=== PATIENT | female | born 1935 | race Caucasian/White ===

== ENCOUNTER → 2019-05-12 15:01 | Outpatient (CLI) | payer MEDICARE, BC ==
[2011-01-16 22:09] VITALS: BMI 40.0
== END | disposition home or self-care (01) ==
LOC: D.CT 15:00
PROVIDERS: ATTEND Family Medicine
DX: R51 Headache (principal)

== ENCOUNTER 2021-01-29 12:23 | Inpatient (IN) | payer MEDICARE, BC ==
[~2021-01-29] VITALS: Ht 165.1 cm; Wt 70.8 kg
[2021-01-29 12:50] LABS: BASOPHILS 0.3 % (0-2); EOSINOPHILS 2.6 % (0-7); HEMATOCRIT 30.9 % (36.0-48.0); HEMOGLOBIN 9.7 g/dL (12-16); IMMATURE GRANULOCYTES 0.7 % (0-5); LYMPHOCYTE ABS# 0.63 10x3/uL (1.18-3.74); LYMPHOCYTES 4.7 % (15-50); MCH 28.7 pg (26.0-34.0); MCHC 31.4 g/dL (31.0-37.0); MCV 91.4 fL (80.0-100.0); MEAN PLATELET VOLUME 10.7 fL (7.4-10.4); MONOCYTES 6.3 % (2-11); NEUTROPHIL ABS# 11.33 10x3/uL (1.56-6.13); NEUTROPHILS 85.4 % (40-80); PLATELET COUNT 231 10x3/uL (130-400); RBC 3.38 10x6/uL (4.00-5.40); RDW 16.5 % (11.5-14.5); WBC 13.3 10x3/uL (4.8-10.8)
[2021-01-29 12:55] LABS: ANION GAP 7.6 mmol/L (8-16); CALCIUM 8.3 mg/dL (8.5-10.1); CARBON DIOXIDE 29.2 mmol/L (21.0-32.0); CREATININE - SERUM 1.4 mg/dL (0.6-1.3); POTASSIUM - SERUM 3.8 mmol/L (3.5-5.1)
[2021-01-29 13:01] LABS: ALBUMIN 2.6 g/dL (3.4-5.0); BILIRUBIN - TOTAL 0.64 mg/dL (0.2-1.3); PROTEIN - SERUM 6.4 g/dL (6.4-8.2)
--- NOTE | 2021-01-29 13:14 | NUR ---
BLANKETS GIVEN, DAUGHTER AT BEDSIDE, DENIES FURTHER NEEDS. NAD.
[2021-01-29 13:41] LABS: APTT 29.5 SECONDS (22.8-39.4); INR 1.25 (0.85-1.17); PROTIME 14.5 SECONDS (11.6-15.0)
[2021-01-29 14:35] LABS: BILIRUBIN NEGATIVE (NEGATIVE); KETONE NEGATIVE (NEGATIVE); NITRITE NEGATIVE (NEGATIVE); UROBILINOGEN NORMAL mg/dL (< 2)
[2021-01-29 16:30] VITALS: BP 112/68
--- NOTE | 2021-01-29 16:30 | NUR ---
PT RECEIVED TO ROOM 2210 VIA STRETCHER. DAUGHTER AT BEDSIDE. RESP SHALLOW. ASSISTED PT TRANSFER FROM STRETCHER TO BED WITH SLIDING BOARD. PT REPORTS PAIN AND DIFFICULTY MOVING DUE TO FX IN HIP AND PELVIS. PROVIDED INCONTINENT CARE TO PT. IV TO LEFT FOREARM WITH NS INFUSING, SITE WITHOUT REDNESS OR EDEMA. BRUISING NOTED TO BILAT UPPER EXTREMITIES. O2 @ 3L NC IN PLACE, PT VOICES TO WEARING O2 AT HOME. ORIENTED TO BED CONTROL, CL AND ROOM. INSTRUCTED PT TO CALL FOR STAFF ASSISTANCE BEFORE ATTEMPTING TO AMBULATE DUE TO FALL RISK. BED ALARM ON AT THIS TIME. CL WITHIN REACH.
[2021-01-29] MEDS ORDERED: BAYER CHEWABLE81 MG PO (16:44)
[2021-01-29] MEDS ORDERED: ZOLOFT50 MG PO (16:45)
[2021-01-29] MEDS ORDERED: ULTRAM50 MG PO (16:45)
[2021-01-29] MEDS ORDERED: OMEPRAZOLE20 M1 PO (16:45)
[2021-01-29] MEDS ORDERED: ENTOCORT EC3 MG PO (16:46)
[2021-01-29] MEDS ORDERED: VITAMIN D10000 UNIT PO (16:47)
[2021-01-29] MEDS ORDERED: VOLTAREN100 GM TOPICAL (16:48)
[2021-01-29] MEDS ORDERED: COZAAR25 MG PO (16:48)
[2021-01-29] MEDS ORDERED: MULTAQ400 MG PO (16:49)
[2021-01-29] MEDS ORDERED: ZYRTEC10 MG PO (16:49)
[2021-01-29] MEDS ORDERED: LOPERAMIDE HCL2 MG PO ×2 (16:50→16:51)
[2021-01-29] MEDS ORDERED: ASCORBIC ACID500 MG PO (16:51)
[2021-01-29] MEDS ORDERED: MULTI-DAY VITAM1 TAB PO (16:52)
[2021-01-29] MEDS ORDERED: PROBIOTIC BLEN1 EACH (16:56)
[2021-01-29 17:29] VITALS: BP 112/68
--- NOTE | 2021-01-29 19:27 | NUR ---
FAMILY BROUGHT IN FOOD AND PATIENT ATE ALL OF SUPPER. DENIES NEEDS. NO CHANGES NOTED.
--- NOTE | 2021-01-29 19:46 | NUR ---
PATIENT RESTING IN BED AND DENIES NEEDS AT THIS TIME. BED IN LOWEST POSITION AND CALL LIGHT IN REACH. ENCOURAGED PATIENT TO CALL WITH NEEDS.
--- NOTE | 2021-01-29 20:33 | NUR ---
ADMINISTERED MEDS PER ORDERS. PATIENT KRISTYN WELL. ENCOURAGED TO CALL WITH NEEDS.
[2021-01-29 20:37] VITALS: BP 140/90
[2021-01-30 04:44] LABS: BASOPHILS 0.5 % (0-2); EOSINOPHILS 3.1 % (0-7); HEMATOCRIT 30.8 % (36.0-48.0); HEMOGLOBIN 9.5 g/dL (12-16); IMMATURE GRANULOCYTES 0.5 % (0-5); LYMPHOCYTES 7.1 % (15-50); MCH 28.3 pg (26.0-34.0); MCHC 30.8 g/dL (31.0-37.0); MCV 91.7 fL (80.0-100.0); NEUTROPHIL ABS# 9.05 10x3/uL (1.56-6.13); NEUTROPHILS 80.8 % (40-80); PLATELET COUNT 186 10x3/uL (130-400); RBC 3.36 10x6/uL (4.00-5.40); RDW 16.6 % (11.5-14.5); WBC 11.2 10x3/uL (4.8-10.8)
[2021-01-30 04:56] VITALS: BP 153/31
[2021-01-30 04:59] LABS: ANION GAP 12.3 mmol/L (8-16); CALCIUM 8.3 mg/dL (8.5-10.1); CARBON DIOXIDE 27.2 mmol/L (21.0-32.0); CREATININE - SERUM 1.5 mg/dL (0.6-1.3)
[2021-01-30 05:00] LABS: POTASSIUM - SERUM 4.5 mmol/L (3.5-5.1)
--- NOTE | 2021-01-30 07:56 | NUR ---
AWAKE AND ALERT. ORIENTED X3. C/O SOME PAIN AT THIS TIME. WILL GIVE PRN. LUNGS ARE CLEAR BUT DIMINISHED THROUGHOUT, NO COUGH NOTED. SKIN IS INTACT WITHOUT REDNESS. IV TO LEFT AC IS PATENT WITHOUT REDNESS AT INSERTION SITE. DENIES NEEDS.
[2021-01-30 09:04] VITALS: BP 113/67
--- NOTE | 2021-01-30 10:00 | NUR ---
RESTING QUIETLY IN BED DAUGHTER AT BEDSIDE. DENIES NEEDS.
[2021-01-30 12:06] VITALS: BP 127/54
[2021-01-30 16:48] VITALS: BP 109/55
--- NOTE | 2021-01-30 18:35 | NUR ---
ATE MOST OF DINNER. FAMILY AT BEDSIDE. C/O WHAT MAY BE SPASMS TO LEFT GROIN AREA. WILL MONITOR. DENIES NEEDS. NO CHANGES NOTED.
--- NOTE | 2021-01-30 19:34 | NUR ---
PATIENT RESTING IN BED WITH NO S/S OF DISTRESS AND REQUESTED PAIN MED WHEN AVAILABE. PATIENT DENIES OTHER NEEDS AT THIS TIME. BED IN LOWEST POSITION AND CALL LIGHT IN REACH. ENCOURAGED PATIENT TO CALL WITH NEEDS.
[2021-01-30 20:35] VITALS: BP 132/45
--- NOTE | 2021-01-30 20:52 | NUR ---
ADMINISTERED MEDS PER ORDERS. PATIENT KRISTYN WELL. ENCOURAGED TO CALL WITH NEEDS.
[2021-01-31 05:11] VITALS: BP 121/40
[2021-01-31 06:23] LABS: BASOPHILS 0.2 % (0-2); EOSINOPHILS 0.3 % (0-7); HEMATOCRIT 28.4 % (36.0-48.0); HEMOGLOBIN 8.8 g/dL (12-16); IMMATURE GRANULOCYTES 0.5 % (0-5); LYMPHOCYTE ABS# 0.34 10x3/uL (1.18-3.74); LYMPHOCYTES 3.1 % (15-50); MCH 28.3 pg (26.0-34.0); MCV 91.3 fL (80.0-100.0); MEAN PLATELET VOLUME 10.6 fL (7.4-10.4); NEUTROPHIL ABS# 10.09 10x3/uL (1.56-6.13); NEUTROPHILS 91.9 % (40-80); PLATELET COUNT 174 10x3/uL (130-400); RBC 3.11 10x6/uL (4.00-5.40); RDW 16.6 % (11.5-14.5)
[2021-01-31 07:08] LABS: ANION GAP 12.8 mmol/L (8-16); CALCIUM 8.1 mg/dL (8.5-10.1); CARBON DIOXIDE 26.8 mmol/L (21.0-32.0); CREATININE - SERUM 1.6 mg/dL (0.6-1.3); POTASSIUM - SERUM 4.6 mmol/L (3.5-5.1)
[2021-01-31 09:22] VITALS: BP 135/106
[2021-01-31 12:26] VITALS: Ht 165.1 cm; Wt 70.8 kg
--- NOTE | 2021-01-31 13:22 | MORECARE ---
CASE MANAGEMENT DISCHARGE SUMMARY PATIENT: MIRNA CHAVEZ UNIT: [id number] ADM DATE: 01/29/21 AGE: 85 : 35 SEX: F ROOM/BED: D.2210 AUTHOR: VALERIO,DOC PHYSICIAN: REFERRING PHYSICIAN: TOD DELCID MD DATE OF SERVICE: 01/31/21 Case Management Discharge Planning Summary COMMENTS ENTERED DATE: 01/31/21 13:16 CT COMMENT TYPE: Discharge Planning REVIEWER: Martha Parr CM met with patient & her daughter to complete initial dc planning assessment. CM educated patient on the CM role and verbal consent given by patient to complete assessment. Patient was just discharged home from [facility] where she was at home for 6 hours and got tangled up in her O2 tubing , she really doesn't remember who or why. She was set up with [facility] when she was discharge from [facility]. Prior to her going to [facility], she was independent at home where she care for herself. At discharge patient plans to return to [facility] and feels this is a safe discharge. She wears home O2 all the time @ 2L. She gets her O2 from [employer] in [place]. She has portable O2 and a concentrator. She has a walker and a cane at home. I have sent the referral to [facility] and spoke with Glenis. ERNESTINA signed and placed in chart. IMM also signed and placed in chart. Patient denied known discharge needs at this time. CM will continue to follow and will assist as needed with dc plans/needs. DCP REVIEW SUMMARY ANTICIPATED D/C DATE: EXPECTED LOS : CASE STATUS: DCP Initiated INITIAL REVIEW: 01/29/2021 INITIAL REVIEWER: Martha Parr FINAL DISCHARGE DISPOSITION: : FINAL REVIEWER: FINAL REVIEW DATE: DCP Focus Questions & Answers DCP Screen QUESTION: ANSWER High Risk Factors: : Readmission within past 30 days DCP Evaluation QUESTION: ANSWER Patient and/or caregiver agree upon recommended discharge plan? : Yes Patient's current cognitive status: : *Oriented to person, place, situation, time and present Patient gives permission to discuss discharge plans with: (name, relationship and number) : KEY ( DAUGHTER) Patient's ability to cope with chronic illness : a. Adequate (0-3 ED visits in 6 mos., adequate financial resources, attends scheduled appts.) Alternate discharge plan (if recommended plan not agreed upon by patient and/or caregiver): : [facility] Does the patient have the ability to pay for or attain post discharge needs / services? : Yes Functional screen assessment: : New onset in difficulty in gait, balance, or transfer difficulties Physical Status: : Mobility impaired Equipment needed for post hospitalization: : Wheelchair Equipment needed for post hospitalization: : Shower Chair Is there a likelihood that the patient will require additional services to return to the preadmission environment? : Yes Functional screen comments: : NWB FOR 6 WEEKS Living Arrangements: : Home Alone with Support Partial Dependence, assistance required for: : Ambulation / Mobility Results of this evaluation have been discussed with: : Patient Results of this evaluation have been discussed with: : Family Patient with capacity for self-care or can be cared for in same environment as prior to hospitalization? : No Living arrangements comments: : WAS JUST DISCHARGED FROM [facility] Baseline cognitive status: : *Oriented to person, place, situation, time and present Physical environment modification needed / anticipated for discharge: : Yes Preadmission facility can/cannot provide post hospital level of care needs: : Cannot - at higher level of care than preadmission Physical environment referral comments (if applicable): : NWB Medication Management: : Patient states can afford medications Planned post hospital services available for patient? : Yes Pharmacy name(s): : [facility] Planned post hospital services covered by insurance plan? : Yes Does Patient have transportation to get home and to follow-up medical appointments when discharged from the hospital? : Yes Would patient like to participate in any Care Coordination programs (if applicable): : Not applicable Does the patient have electricity at home? : Yes Does the patient have running water in their house? : Yes Equipment in use: : Walker - Rolling Equipment in use: : Cane - Single Leg Mental health screen: : No mental health history Psychosocial status: : Adult with physical limitations Abuse/Neglect: : None Resources / Services in place: : Home health Contact information for resources in use: : CARE IV DCP Re-evaluation QUESTION: ANSWER Would patient like to participate in any Care Coordination programs (if applicable): : Not applicable PATIENT: MIRNA CHAVEZ ENCOUNTER: [id number] MEDICAL RECORD#: [id number] ADMISSION DATE: 01/29/2021 DISCHARGE DATE: ATTENDING MD: TOD KAMARA : AGE: 85 MARITAL STATUS: W DC PLAN ID: [id number] FACILITY: [facility] PRINTED ON: 01/31/21 13:22 CT All edits/amendments must be made on the electronic document DICTATION DATE: 01/31/211321 USER INTERFACE DEVELOPER: LOUANN 01/31/211321 RPT#: [id number] DC DATE: STATUS: ADM IN [facility] [address] [place] [address] END OF REPORT
[2021-01-31 14:42] VITALS: BP 124/48
[2021-01-31 18:55] VITALS: BP 120/50
[2021-01-31 20:00] VITALS: BP 139/43
[2021-02-01] VITALS: BP 136/82
[2021-02-01 04:00] VITALS: BP 135/454
[2021-02-01 04:50] LABS: BASOPHILS 0.1 % (0-2); EOSINOPHILS 1.1 % (0-7); HEMATOCRIT 28.2 % (36.0-48.0); HEMOGLOBIN 8.6 g/dL (12-16); IMMATURE GRANULOCYTES 0.5 % (0-5); LYMPHOCYTE ABS# 0.36 10x3/uL (1.18-3.74); LYMPHOCYTES 3.3 % (15-50); MCH 28.1 pg (26.0-34.0); MCHC 30.5 g/dL (31.0-37.0); MCV 92.2 fL (80.0-100.0); MEAN PLATELET VOLUME 11.2 fL (7.4-10.4); MONOCYTES 6.2 % (2-11); NEUTROPHIL ABS# 9.77 10x3/uL (1.56-6.13); NEUTROPHILS 88.8 % (40-80); PLATELET COUNT 187 10x3/uL (130-400); RBC 3.06 10x6/uL (4.00-5.40); RDW 16.6 % (11.5-14.5)
[2021-02-01 05:15] LABS: ANION GAP 10.5 mmol/L (8-16); CALCIUM 8.5 mg/dL (8.5-10.1); CARBON DIOXIDE 27.2 mmol/L (21.0-32.0); CREATININE - SERUM 1.8 mg/dL (0.6-1.3); POTASSIUM - SERUM 4.7 mmol/L (3.5-5.1)
--- NOTE | 2021-02-01 09:13 | MORECARE ---
CASE MANAGEMENT DISCHARGE SUMMARY PATIENT: MIRNA CHAVEZ UNIT: [id number] ADM DATE: 01/29/21 AGE: 85 : 35 SEX: F ROOM/BED: D.2210 AUTHOR: VALERIO,DOC PHYSICIAN: REFERRING PHYSICIAN: TOD DELCID MD DATE OF SERVICE: 02/01/21 Case Management Discharge Planning Summary COMMENTS ENTERED DATE: 01/31/21 13:16 CT COMMENT TYPE: Discharge Planning REVIEWER: Martha Parr CM met with patient & her daughter to complete initial dc planning assessment. CM educated patient on the CM role and verbal consent given by patient to complete assessment. Patient was just discharged home from [facility] where she was at home for 6 hours and got tangled up in her O2 tubing , she really doesn't remember who or why. She was set up with [facility] when she was discharge from [facility]. Prior to her going to [facility], she was independent at home where she care for herself. At discharge patient plans to return to [facility] and feels this is a safe discharge. She wears home O2 all the time @ 2L. She gets her O2 from [employer] in [place]. She has portable O2 and a concentrator. She has a walker and a cane at home. I have sent the referral to [facility] and spoke with Glenis. ERNESTINA signed and placed in chart. IMM also signed and placed in chart. Patient denied known discharge needs at this time. CM will continue to follow and will assist as needed with dc plans/needs. DCP REVIEW SUMMARY ANTICIPATED D/C DATE: EXPECTED LOS : CASE STATUS: DCP Initiated INITIAL REVIEW: 01/29/2021 INITIAL REVIEWER: Martha Parr FINAL DISCHARGE DISPOSITION: : FINAL REVIEWER: FINAL REVIEW DATE: DCP Focus Questions & Answers DCP Screen QUESTION: ANSWER High Risk Factors: : Readmission within past 30 days DCP Evaluation QUESTION: ANSWER Patient and/or caregiver agree upon recommended discharge plan? : Yes Patient's current cognitive status: : *Oriented to person, place, situation, time and present Patient gives permission to discuss discharge plans with: (name, relationship and number) : KEY ( DAUGHTER) Patient's ability to cope with chronic illness : a. Adequate (0-3 ED visits in 6 mos., adequate financial resources, attends scheduled appts.) Alternate discharge plan (if recommended plan not agreed upon by patient and/or caregiver): : [facility] Does the patient have the ability to pay for or attain post discharge needs / services? : Yes Functional screen assessment: : New onset in difficulty in gait, balance, or transfer difficulties Physical Status: : Mobility impaired Equipment needed for post hospitalization: : Wheelchair Equipment needed for post hospitalization: : Shower Chair Is there a likelihood that the patient will require additional services to return to the preadmission environment? : Yes Functional screen comments: : NWB FOR 6 WEEKS Living Arrangements: : Home Alone with Support Partial Dependence, assistance required for: : Ambulation / Mobility Results of this evaluation have been discussed with: : Patient Results of this evaluation have been discussed with: : Family Patient with capacity for self-care or can be cared for in same environment as prior to hospitalization? : No Living arrangements comments: : WAS JUST DISCHARGED FROM [facility] Baseline cognitive status: : *Oriented to person, place, situation, time and present Physical environment modification needed / anticipated for discharge: : Yes Preadmission facility can/cannot provide post hospital level of care needs: : Cannot - at higher level of care than preadmission Physical environment referral comments (if applicable): : NWB Medication Management: : Patient states can afford medications Planned post hospital services available for patient? : Yes Pharmacy name(s): : [facility] Planned post hospital services covered by insurance plan? : Yes Does Patient have transportation to get home and to follow-up medical appointments when discharged from the hospital? : Yes Would patient like to participate in any Care Coordination programs (if applicable): : Not applicable Does the patient have electricity at home? : Yes Does the patient have running water in their house? : Yes Equipment in use: : Walker - Rolling Equipment in use: : Cane - Single Leg Mental health screen: : No mental health history Psychosocial status: : Adult with physical limitations Abuse/Neglect: : None Resources / Services in place: : Home health Contact information for resources in use: : CARE IV DCP Re-evaluation QUESTION: ANSWER Would patient like to participate in any Care Coordination programs (if applicable): : Not applicable PATIENT: MIRNA CHAVEZ ENCOUNTER: [id number] MEDICAL RECORD#: [id number] ADMISSION DATE: 01/29/2021 DISCHARGE DATE: ATTENDING MD: TOD KAMARA : AGE: 85 MARITAL STATUS: W DC PLAN ID: [id number] FACILITY: [facility] PRINTED ON: 02/01/21 9:13 CT All edits/amendments must be made on the electronic document DICTATION DATE: 02/01/21912 AIR INTERCEPT CONTROLLER: LOUANN 02/01/21912 RPT#: [id number] DC DATE: STATUS: ADM IN [facility] [address] [place] [address] END OF REPORT
[2021-02-01 09:34] VITALS: BP 147/44
--- NOTE | 2021-02-01 09:36 | MORECARE ---
CASE MANAGEMENT DISCHARGE SUMMARY PATIENT: MIRNA CHAVEZ UNIT: [id number] ADM DATE: 01/29/21 AGE: 85 : 35 SEX: F ROOM/BED: D.2210 AUTHOR: VALERIO,DOC PHYSICIAN: REFERRING PHYSICIAN: TOD DELCID MD DATE OF SERVICE: 02/01/21 Case Management Discharge Planning Summary COMMENTS ENTERED DATE: 02/01/21 9:23 CT COMMENT TYPE: Discharge Planning REVIEWER: Martha Parr Per Dr Cha the daughter is now wanting her mom to go to inpatient rehab at [facility]. I have put the referral in to see if she would qualify for that & called the daughter to verify the change of plan. I left message on Judy's phone for her to call me back cm to follow ENTERED DATE: 01/31/21 13:16 CT COMMENT TYPE: Discharge Planning REVIEWER: Martha Parr CM met with patient & her daughter to complete initial dc planning assessment. CM educated patient on the CM role and verbal consent given by patient to complete assessment. Patient was just discharged home from [facility] where she was at home for 6 hours and got tangled up in her O2 tubing , she really doesn't remember who or why. She was set up with [facility] when she was discharge from [facility]. Prior to her going to [facility], she was independent at home where she care for herself. At discharge patient plans to return to [facility] and feels this is a safe discharge. She wears home O2 all the time @ 2L. She gets her O2 from [employer] in [place]. She has portable O2 and a concentrator. She has a walker and a cane at home. I have sent the referral to [facility] and spoke with Glenis. ERNESTINA signed and placed in chart. IMM also signed and placed in chart. Patient denied known discharge needs at this time. CM will continue to follow and will assist as needed with dc plans/needs. DCP REVIEW SUMMARY ANTICIPATED D/C DATE: EXPECTED LOS : CASE STATUS: DCP Initiated INITIAL REVIEW: 01/29/2021 INITIAL REVIEWER: Martha Parr FINAL DISCHARGE DISPOSITION: : FINAL REVIEWER: FINAL REVIEW DATE: DCP Focus Questions & Answers DCP Screen QUESTION: ANSWER High Risk Factors: : Readmission within past 30 days DCP Evaluation QUESTION: ANSWER Patient and/or caregiver agree upon recommended discharge plan? : Yes Patient's current cognitive status: : *Oriented to person, place, situation, time and present Patient gives permission to discuss discharge plans with: (name, relationship and number) : JUDY ( DAUGHTER) Patient's ability to cope with chronic illness : a. Adequate (0-3 ED visits in 6 mos., adequate financial resources, attends scheduled appts.) Alternate discharge plan (if recommended plan not agreed upon by patient and/or caregiver): : [facility] Does the patient have the ability to pay for or attain post discharge needs / services? : Yes Functional screen assessment: : New onset in difficulty in gait, balance, or transfer difficulties Physical Status: : Mobility impaired Equipment needed for post hospitalization: : Wheelchair Equipment needed for post hospitalization: : Shower Chair Is there a likelihood that the patient will require additional services to return to the preadmission environment? : Yes Functional screen comments: : NWB FOR 6 WEEKS Living Arrangements: : Home Alone with Support Partial Dependence, assistance required for: : Ambulation / Mobility Results of this evaluation have been discussed with: : Patient Results of this evaluation have been discussed with: : Family Patient with capacity for self-care or can be cared for in same environment as prior to hospitalization? : No Living arrangements comments: : WAS JUST DISCHARGED FROM [facility] Baseline cognitive status: : *Oriented to person, place, situation, time and present Physical environment modification needed / anticipated for discharge: : Yes Preadmission facility can/cannot provide post hospital level of care needs: : Cannot - at higher level of care than preadmission Physical environment referral comments (if applicable): : NWB Medication Management: : Patient states can afford medications Planned post hospital services available for patient? : Yes Pharmacy name(s): : [facility] Planned post hospital services covered by insurance plan? : Yes Does Patient have transportation to get home and to follow-up medical appointments when discharged from the hospital? : Yes Would patient like to participate in any Care Coordination programs (if applicable): : Not applicable Does the patient have electricity at home? : Yes Does the patient have running water in their house? : Yes Equipment in use: : Walker - Rolling Equipment in use: : Cane - Single Leg Mental health screen: : No mental health history Psychosocial status: : Adult with physical limitations Abuse/Neglect: : None Resources / Services in place: : Home health Contact information for resources in use: : CARE IV DCP Re-evaluation QUESTION: ANSWER Would patient like to participate in any Care Coordination programs (if applicable): : Not applicable PATIENT: MIRNA CHAVEZ ENCOUNTER: [id number] MEDICAL RECORD#: [id number] ADMISSION DATE: 01/29/2021 DISCHARGE DATE: ATTENDING MD: TOD KAMARA : AGE: 85 MARITAL STATUS: W DC PLAN ID: [id number] FACILITY: [facility] PRINTED ON: 02/01/21 9:36 CT All edits/amendments must be made on the electronic document DICTATION DATE: 02/01/21935 GENERAL LABOR: LOUANN 02/01/21935 RPT#: [id number] DC DATE: STATUS: ADM IN [facility] [address] [place] [address] END OF REPORT
--- NOTE | 2021-02-01 10:27 | NUR ---
REHAB PRESCREEN HAS BEEN RECEIVED AND WE ARE CURRENTLY WORKING HER UP. IT LOOKS IF SHE WILL BE A GREAT CANDIDATE FOR INPATIENT REHAB. I WILL BEGIN HER ELECTRONIC SCREEN, AND SHE WILL BE ACCEPTED TO REHAB WHEN APPROVALS ARE IN PLACE IF SHE IS WILLING TO COME. THANK YOU FOR THIS REFERRAL. JOSE JIMENEZ RN CM INPATIENT REHAB, CLINICAL LIAISON.
--- NOTE | 2021-02-01 12:35 | MORECARE ---
CASE MANAGEMENT DISCHARGE SUMMARY PATIENT: MIRNA CHAVEZ UNIT: [id number] ADM DATE: 01/29/21 AGE: 85 : 35 SEX: F ROOM/BED: D.2210 AUTHOR: VALERIO,DOC PHYSICIAN: REFERRING PHYSICIAN: TOD DELCID MD DATE OF SERVICE: 02/01/21 Case Management Discharge Planning Summary COMMENTS ENTERED DATE: 02/01/21 12:31 CT COMMENT TYPE: Discharge Planning REVIEWER: Martha Parr Patient has been accepted to inpatient rehab, I called the patient's daughter to let her know Patient will be discharged today ENTERED DATE: 02/01/21 9:23 CT COMMENT TYPE: Discharge Planning REVIEWER: Martha Parr Per Dr Cha the daughter is now wanting her mom to go to inpatient rehab at [facility]. I have put the referral in to see if she would qualify for that & called the daughter to verify the change of plan. I left message on Judy's phone for her to call me back cm to follow ENTERED DATE: 01/31/21 13:16 CT COMMENT TYPE: Discharge Planning REVIEWER: Marthatejas Parr CM met with patient & her daughter to complete initial dc planning assessment. CM educated patient on the CM role and verbal consent given by patient to complete assessment. Patient was just discharged home from [facility] where she was at home for 6 hours and got tangled up in her O2 tubing , she really doesn't remember who or why. She was set up with [facility] when she was discharge from [facility]. Prior to her going to [facility], she was independent at home where she care for herself. At discharge patient plans to return to [facility] and feels this is a safe discharge. She wears home O2 all the time @ 2L. She gets her O2 from [employer] in [place]. She has portable O2 and a concentrator. She has a walker and a cane at home. I have sent the referral to [facility] and spoke with Glenis. ERNESTINA signed and placed in chart. IMM also signed and placed in chart. Patient denied known discharge needs at this time. CM will continue to follow and will assist as needed with dc plans/needs. DCP REVIEW SUMMARY ANTICIPATED D/C DATE: EXPECTED LOS : CASE STATUS: DCP Initiated INITIAL REVIEW: 01/29/2021 INITIAL REVIEWER: Martha Parr FINAL DISCHARGE DISPOSITION: : FINAL REVIEWER: FINAL REVIEW DATE: DCP Focus Questions & Answers DCP Screen QUESTION: ANSWER High Risk Factors: : Readmission within past 30 days DCP Evaluation QUESTION: ANSWER Patient and/or caregiver agree upon recommended discharge plan? : Yes Patient's current cognitive status: : *Oriented to person, place, situation, time and present Patient gives permission to discuss discharge plans with: (name, relationship and number) : JUDY ( DAUGHTER) Patient's ability to cope with chronic illness : a. Adequate (0-3 ED visits in 6 mos., adequate financial resources, attends scheduled appts.) Alternate discharge plan (if recommended plan not agreed upon by patient and/or caregiver): : [facility] Does the patient have the ability to pay for or attain post discharge needs / services? : Yes Functional screen assessment: : New onset in difficulty in gait, balance, or transfer difficulties Physical Status: : Mobility impaired Equipment needed for post hospitalization: : Wheelchair Equipment needed for post hospitalization: : Shower Chair Is there a likelihood that the patient will require additional services to return to the preadmission environment? : Yes Functional screen comments: : NWB FOR 6 WEEKS Living Arrangements: : Home Alone with Support Partial Dependence, assistance required for: : Ambulation / Mobility Results of this evaluation have been discussed with: : Patient Results of this evaluation have been discussed with: : Family Patient with capacity for self-care or can be cared for in same environment as prior to hospitalization? : No Living arrangements comments: : WAS JUST DISCHARGED FROM [facility] Baseline cognitive status: : *Oriented to person, place, situation, time and present Physical environment modification needed / anticipated for discharge: : Yes Preadmission facility can/cannot provide post hospital level of care needs: : Cannot - at higher level of care than preadmission Physical environment referral comments (if applicable): : NWB Medication Management: : Patient states can afford medications Planned post hospital services available for patient? : Yes Pharmacy name(s): : [facility] [place] Planned post hospital services covered by insurance plan? : Yes Does Patient have transportation to get home and to follow-up medical appointments when discharged from the hospital? : Yes Would patient like to participate in any Care Coordination programs (if applicable): : Not applicable Does the patient have electricity at home? : Yes Does the patient have running water in their house? : Yes Equipment in use: : Walker - Rolling Equipment in use: : Cane - Single Leg Mental health screen: : No mental health history Psychosocial status: : Adult with physical limitations Abuse/Neglect: : None Resources / Services in place: : Home health Contact information for resources in use: : CARE IV DCP Re-evaluation QUESTION: ANSWER Would patient like to participate in any Care Coordination programs (if applicable): : Not applicable PATIENT: MIRNA CHAVEZ ENCOUNTER: [id number] MEDICAL RECORD#: [id number] ADMISSION DATE: 01/29/2021 DISCHARGE DATE: ATTENDING MD: TOD KAMARA : AGE: 85 MARITAL STATUS: W DC PLAN ID: [id number] FACILITY: [facility] PRINTED ON: 02/01/21 12:35 CT All edits/amendments must be made on the electronic document DICTATION DATE: 02/01/21 123 KNEE BOLTER: LOUANN 02/01/21 1235 RPT#: [id number] DC DATE: STATUS: ADM IN [facility] [address] [place] [address] END OF REPORT
[2021-02-01 13:23] VITALS: BP 152/40
--- NOTE | 2021-02-01 18:22 | NUR ---
IV ACSESS REMOVED TOLERATED WELL. PT WILL DISCHARGE TO REHAB
--- NOTE | 2021-02-01 18:30 | NUR ---
REPORT CALLED TO DIANNE [facility].
--- NOTE | 2021-02-01 19:40 | NUR ---
PATIENT TRANSFERRED TO REHAB
--- NOTE | 2021-02-01 20:02 | MORECARE ---
CASE MANAGEMENT DISCHARGE SUMMARY PATIENT: MIRNA CHAVEZ UNIT: [id number] ADM DATE: 01/29/21 AGE: 85 : 35 SEX: F ROOM/BED: D.2210 AUTHOR: VALERIO,DOC PHYSICIAN: REFERRING PHYSICIAN: TOD DELCID MD DATE OF SERVICE: 02/01/21 Case Management Discharge Planning Summary COMMENTS ENTERED DATE: 02/01/21 12:31 CT COMMENT TYPE: Discharge Planning REVIEWER: Martha Parr Patient has been accepted to inpatient rehab, I called the patient's daughter to let her know Patient will be discharged today ENTERED DATE: 02/01/21 9:23 CT COMMENT TYPE: Discharge Planning REVIEWER: Martha Parr Per Dr Cha the daughter is now wanting her mom to go to inpatient rehab at [facility]. I have put the referral in to see if she would qualify for that & called the daughter to verify the change of plan. I left message on Judy's phone for her to call me back cm to follow ENTERED DATE: 01/31/21 13:16 CT COMMENT TYPE: Discharge Planning REVIEWER: Marthatejas Parr CM met with patient & her daughter to complete initial dc planning assessment. CM educated patient on the CM role and verbal consent given by patient to complete assessment. Patient was just discharged home from [facility] where she was at home for 6 hours and got tangled up in her O2 tubing , she really doesn't remember who or why. She was set up with [facility] when she was discharge from [facility]. Prior to her going to [facility], she was independent at home where she care for herself. At discharge patient plans to return to [facility] and feels this is a safe discharge. She wears home O2 all the time @ 2L. She gets her O2 from [employer] in [place]. She has portable O2 and a concentrator. She has a walker and a cane at home. I have sent the referral to [facility] and spoke with Glenis. ERNESTINA signed and placed in chart. IMM also signed and placed in chart. Patient denied known discharge needs at this time. CM will continue to follow and will assist as needed with dc plans/needs. DCP REVIEW SUMMARY ANTICIPATED D/C DATE: EXPECTED LOS : CASE STATUS: DCP Initiated INITIAL REVIEW: 01/29/2021 INITIAL REVIEWER: Martha Parr FINAL DISCHARGE DISPOSITION: : FINAL REVIEWER: FINAL REVIEW DATE: DCP Focus Questions & Answers DCP Screen QUESTION: ANSWER High Risk Factors: : Readmission within past 30 days DCP Evaluation QUESTION: ANSWER Patient and/or caregiver agree upon recommended discharge plan? : Yes Patient's current cognitive status: : *Oriented to person, place, situation, time and present Patient gives permission to discuss discharge plans with: (name, relationship and number) : JUDY ( DAUGHTER) Patient's ability to cope with chronic illness : a. Adequate (0-3 ED visits in 6 mos., adequate financial resources, attends scheduled appts.) Alternate discharge plan (if recommended plan not agreed upon by patient and/or caregiver): : [facility] Does the patient have the ability to pay for or attain post discharge needs / services? : Yes Functional screen assessment: : New onset in difficulty in gait, balance, or transfer difficulties Physical Status: : Mobility impaired Equipment needed for post hospitalization: : Wheelchair Equipment needed for post hospitalization: : Shower Chair Is there a likelihood that the patient will require additional services to return to the preadmission environment? : Yes Functional screen comments: : NWB FOR 6 WEEKS Living Arrangements: : Home Alone with Support Partial Dependence, assistance required for: : Ambulation / Mobility Results of this evaluation have been discussed with: : Patient Results of this evaluation have been discussed with: : Family Patient with capacity for self-care or can be cared for in same environment as prior to hospitalization? : No Living arrangements comments: : WAS JUST DISCHARGED FROM [facility] Baseline cognitive status: : *Oriented to person, place, situation, time and present Physical environment modification needed / anticipated for discharge: : Yes Preadmission facility can/cannot provide post hospital level of care needs: : Cannot - at higher level of care than preadmission Physical environment referral comments (if applicable): : NWB Medication Management: : Patient states can afford medications Planned post hospital services available for patient? : Yes Pharmacy name(s): : [facility] [place] Planned post hospital services covered by insurance plan? : Yes Does Patient have transportation to get home and to follow-up medical appointments when discharged from the hospital? : Yes Would patient like to participate in any Care Coordination programs (if applicable): : Not applicable Does the patient have electricity at home? : Yes Does the patient have running water in their house? : Yes Equipment in use: : Walker - Rolling Equipment in use: : Cane - Single Leg Mental health screen: : No mental health history Psychosocial status: : Adult with physical limitations Abuse/Neglect: : None Resources / Services in place: : Home health Contact information for resources in use: : CARE IV DCP Re-evaluation QUESTION: ANSWER Would patient like to participate in any Care Coordination programs (if applicable): : Not applicable PATIENT: MIRNA CHAVEZ ENCOUNTER: [id number] MEDICAL RECORD#: [id number] ADMISSION DATE: 01/29/2021 DISCHARGE DATE: 02/01/2021 ATTENDING MD: TOD KAMARA : [id number] AGE: 85 MARITAL STATUS: W DC PLAN ID: [id number] FACILITY: [facility] PRINTED ON: 02/01/21 20:02 CT All edits/amendments must be made on the electronic document DICTATION DATE: 02/01/212001 [employer] DIRECTOR: LOUANN 02/01/212001 RPT#: [id number] DC DATE:02/01/21 STATUS: DIS IN [facility] [address] [place] [address] END OF REPORT
--- NOTE | 2021-02-02 07:42 | MORECARE ---
CASE MANAGEMENT DISCHARGE SUMMARY PATIENT: MIRNA CHAVEZ UNIT: [id number] ADM DATE: 01/29/21 AGE: 85 : 35 SEX: F ROOM/BED: D.2210 AUTHOR: VALERIO,DOC PHYSICIAN: REFERRING PHYSICIAN: TOD DELCID MD DATE OF SERVICE: 02/02/21 Case Management Discharge Planning Summary COMMENTS ENTERED DATE: 02/01/21 12:31 CT COMMENT TYPE: Discharge Planning REVIEWER: Martha Parr Patient has been accepted to inpatient rehab, I called the patient's daughter to let her know Patient will be discharged today ENTERED DATE: 02/01/21 9:23 CT COMMENT TYPE: Discharge Planning REVIEWER: Martha Parr Per Dr Cha the daughter is now wanting her mom to go to inpatient rehab at [facility]. I have put the referral in to see if she would qualify for that & called the daughter to verify the change of plan. I left message on Judy's phone for her to call me back cm to follow ENTERED DATE: 01/31/21 13:16 CT COMMENT TYPE: Discharge Planning REVIEWER: Marthatejas Parr CM met with patient & her daughter to complete initial dc planning assessment. CM educated patient on the CM role and verbal consent given by patient to complete assessment. Patient was just discharged home from [facility] where she was at home for 6 hours and got tangled up in her O2 tubing , she really doesn't remember who or why. She was set up with [facility] when she was discharge from [facility]. Prior to her going to [facility], she was independent at home where she care for herself. At discharge patient plans to return to [facility] and feels this is a safe discharge. She wears home O2 all the time @ 2L. She gets her O2 from [employer] in [place]. She has portable O2 and a concentrator. She has a walker and a cane at home. I have sent the referral to [facility] and spoke with Glenis. ERNESTINA signed and placed in chart. IMM also signed and placed in chart. Patient denied known discharge needs at this time. CM will continue to follow and will assist as needed with dc plans/needs. DCP REVIEW SUMMARY ANTICIPATED D/C DATE: EXPECTED LOS : CASE STATUS: DCP Initiated INITIAL REVIEW: 01/29/2021 INITIAL REVIEWER: Martha Parr FINAL DISCHARGE DISPOSITION: : FINAL REVIEWER: FINAL REVIEW DATE: DCP Focus Questions & Answers DCP Screen QUESTION: ANSWER High Risk Factors: : Readmission within past 30 days DCP Evaluation QUESTION: ANSWER Patient and/or caregiver agree upon recommended discharge plan? : Yes Patient's current cognitive status: : *Oriented to person, place, situation, time and present Patient gives permission to discuss discharge plans with: (name, relationship and number) : JUDY ( DAUGHTER) Patient's ability to cope with chronic illness : a. Adequate (0-3 ED visits in 6 mos., adequate financial resources, attends scheduled appts.) Alternate discharge plan (if recommended plan not agreed upon by patient and/or caregiver): : [facility] Does the patient have the ability to pay for or attain post discharge needs / services? : Yes Functional screen assessment: : New onset in difficulty in gait, balance, or transfer difficulties Physical Status: : Mobility impaired Equipment needed for post hospitalization: : Wheelchair Equipment needed for post hospitalization: : Shower Chair Is there a likelihood that the patient will require additional services to return to the preadmission environment? : Yes Functional screen comments: : NWB FOR 6 WEEKS Living Arrangements: : Home Alone with Support Partial Dependence, assistance required for: : Ambulation / Mobility Results of this evaluation have been discussed with: : Patient Results of this evaluation have been discussed with: : Family Patient with capacity for self-care or can be cared for in same environment as prior to hospitalization? : No Living arrangements comments: : WAS JUST [facility] Baseline cognitive status: : *Oriented to person, place, situation, time and present Physical environment modification needed / anticipated for discharge: : Yes Preadmission facility can/cannot provide post hospital level of care needs: : Cannot - at higher level of care than preadmission Physical environment referral comments (if applicable): : NWB Medication Management: : Patient states can afford medications Planned post hospital services available for patient? : Yes Pharmacy name(s): : [facility] [place] Planned post hospital services covered by insurance plan? : Yes Does Patient have transportation to get home and to follow-up medical appointments when discharged from the hospital? : Yes Would patient like to participate in any Care Coordination programs (if applicable): : Not applicable Does the patient have electricity at home? : Yes Does the patient have running water in their house? : Yes Equipment in use: : Walker - Rolling Equipment in use: : Cane - Single Leg Mental health screen: : No mental health history Psychosocial status: : Adult with physical limitations Abuse/Neglect: : None Resources / Services in place: : Home health Contact information for resources in use: : CARE IV DCP Re-evaluation QUESTION: ANSWER Would patient like to participate in any Care Coordination programs (if applicable): : Not applicable PATIENT: MIRNA CHAVEZ ENCOUNTER: [id number] MEDICAL RECORD#: [id number] ADMISSION DATE: 01/29/2021 DISCHARGE DATE: 02/01/2021 ATTENDING MD: TOD KAMARA : AGE: 85 MARITAL STATUS: W DC PLAN ID: [id number] FACILITY: [facility] PRINTED ON: 02/02/21 7:42 CT All edits/amendments must be made on the electronic document DICTATION DATE: 02/02/21741 DIRECT SERVICE WORKER: LOUANN 02/02/21741 RPT#: [id number] DC DATE:02/01/21 STATUS: DIS IN [facility] [address] [place] [address] END OF REPORT
--- NOTE | 2021-02-02 12:06 | MORECARE ---
CASE MANAGEMENT DISCHARGE SUMMARY PATIENT: MIRNA CHAVEZ UNIT: [id number] ADM DATE: 01/29/21 AGE: 85 : 35 SEX: F ROOM/BED: D.2210 AUTHOR: VALERIO,DOC PHYSICIAN: REFERRING PHYSICIAN: TOD DELCID MD DATE OF SERVICE: 02/02/21 Case Management Discharge Planning Summary COMMENTS ENTERED DATE: 02/01/21 12:31 CT COMMENT TYPE: Discharge Planning REVIEWER: Martha Parr Patient has been accepted to inpatient rehab, I called the patient's daughter to let her know Patient will be discharged today ENTERED DATE: 02/01/21 9:23 CT COMMENT TYPE: Discharge Planning REVIEWER: Martha Parr Per Dr Cha the daughter is now wanting her mom to go to inpatient rehab at [facility]. I have put the referral in to see if she would qualify for that & called the daughter to verify the change of plan. I left message on Juyd's phone for her to call me back cm to follow ENTERED DATE: 01/31/21 13:16 CT COMMENT TYPE: Discharge Planning REVIEWER: Marthatejas Parr CM met with patient & her daughter to complete initial dc planning assessment. CM educated patient on the CM role and verbal consent given by patient to complete assessment. Patient was just discharged home from [facility] where she was at home for 6 hours and got tangled up in her O2 tubing , she really doesn't remember who or why. She was set up with [facility] when she was discharge from [facility]. Prior to her going to [facility], she was independent at home where she care for herself. At discharge patient plans to return to [facility] and feels this is a safe discharge. She wears home O2 all the time @ 2L. She gets her O2 from [email or web address] in [place]. She has portable O2 and a concentrator. She has a walker and a cane at home. I have sent the referral to [facility] and spoke with Glenis. ERNESTINA signed and placed in chart. IMM also signed and placed in chart. Patient denied known discharge needs at this time. CM will continue to follow and will assist as needed with dc plans/needs. DCP REVIEW SUMMARY ANTICIPATED D/C DATE: EXPECTED LOS : CASE STATUS: DCP Initiated INITIAL REVIEW: 01/29/2021 INITIAL REVIEWER: Martha Parr FINAL DISCHARGE DISPOSITION: : FINAL REVIEWER: FINAL REVIEW DATE: DCP Focus Questions & Answers DCP Screen QUESTION: ANSWER High Risk Factors: : Readmission within past 30 days DCP Evaluation QUESTION: ANSWER Patient and/or caregiver agree upon recommended discharge plan? : Yes Patient's current cognitive status: : *Oriented to person, place, situation, time and present Patient gives permission to discuss discharge plans with: (name, relationship and number) : JUDY ( DAUGHTER) Patient's ability to cope with chronic illness : a. Adequate (0-3 ED visits in 6 mos., adequate financial resources, attends scheduled appts.) Alternate discharge plan (if recommended plan not agreed upon by patient and/or caregiver): : [facility] Does the patient have the ability to pay for or attain post discharge needs / services? : Yes Functional screen assessment: : New onset in difficulty in gait, balance, or transfer difficulties Physical Status: : Mobility impaired Equipment needed for post hospitalization: : Wheelchair Equipment needed for post hospitalization: : Shower Chair Is there a likelihood that the patient will require additional services to return to the preadmission environment? : Yes Functional screen comments: : NWB FOR 6 WEEKS Living Arrangements: : Home Alone with Support Partial Dependence, assistance required for: : Ambulation / Mobility Results of this evaluation have been discussed with: : Patient Results of this evaluation have been discussed with: : Family Patient with capacity for self-care or can be cared for in same environment as prior to hospitalization? : No Living arrangements comments: : WAS JUST [facility] Baseline cognitive status: : *Oriented to person, place, situation, time and present Physical environment modification needed / anticipated for discharge: : Yes Preadmission facility can/cannot provide post hospital level of care needs: : Cannot - at higher level of care than preadmission Physical environment referral comments (if applicable): : NWB Medication Management: : Patient states can afford medications Planned post hospital services available for patient? : Yes Pharmacy name(s): : [facility] [place] Planned post hospital services covered by insurance plan? : Yes Does Patient have transportation to get home and to follow-up medical appointments when discharged from the hospital? : Yes Would patient like to participate in any Care Coordination programs (if applicable): : Not applicable Does the patient have electricity at home? : Yes Does the patient have running water in their house? : Yes Equipment in use: : Walker - Rolling Equipment in use: : Cane - Single Leg Mental health screen: : No mental health history Psychosocial status: : Adult with physical limitations Abuse/Neglect: : None Resources / Services in place: : Home health Contact information for resources in use: : CARE IV DCP Re-evaluation QUESTION: ANSWER Would patient like to participate in any Care Coordination programs (if applicable): : Not applicable PATIENT: MIRNA CHAVEZ ENCOUNTER: [id number] MEDICAL RECORD#: [id number] ADMISSION DATE: 01/29/2021 DISCHARGE DATE: 02/01/2021 ATTENDING MD: TOD KAMARA : AGE: 85 MARITAL STATUS: W DC PLAN ID: [id number] FACILITY: [facility] PRINTED ON: 02/02/21 12:06 CT All edits/amendments must be made on the electronic document DICTATION DATE: 02/02/211205 PRESIDENT EDUCATIONAL INSTITUTION: LOUANN 02/02/211205 RPT#: [id number] DC DATE:02/01/21 STATUS: DIS IN [facility] [address] [place] [address] END OF REPORT
== END 2021-02-01 18:40 | DRG 536 ==
LOC: D.ER 12:23 → D.MS 14:38
PROVIDERS: Family Medicine; ADMIT Family Medicine; ATTEND Family Medicine
DX: S32.402A Unspecified fracture of left acetabulum, initial encounter for closed fracture (principal); S32.592A Other specified fracture of left pubis, initial encounter for closed fracture; W19.XXXA Unspecified fall, initial encounter; E11.9 Type 2 diabetes mellitus without complications; I10 Essential (primary) hypertension; J44.9 Chronic obstructive pulmonary disease, unspecified; J84.10 Pulmonary fibrosis, unspecified; S76.912A Strain of unspecified muscles, fascia and tendons at thigh level, left thigh, initial encounter; S70.02XA Contusion of left hip, initial encounter; Z95.0 Presence of cardiac pacemaker; M32.9 Systemic lupus erythematosus, unspecified; R41.3 Other amnesia; Z91.81 History of falling

== ENCOUNTER 2021-02-01 18:45 | Inpatient (IN) | payer MEDICARE, BC ==
[~2021-02-01] VITALS: Ht 165.1 cm; Wt 78.0 kg
[~2021-02-01 18:45] MED LIST: ASCORBIC ACID500 MG PO; BAYER CHEWABLE81 MG PO; COZAAR25 MG PO; ENTOCORT EC3 MG PO; LOPERAMIDE HCL2 MG PO; MULTAQ400 MG PO; MULTI-DAY VITAM1 TAB PO; OMEPRAZOLE20 M1 PO; PROBIOTIC BLEN1 EACH; ULTRAM50 MG PO; VITAMIN D10000 UNIT PO; VOLTAREN100 GM TOPICAL; ZOLOFT50 MG PO; ZYRTEC10 MG PO
[2021-02-01 21:22] VITALS: BP 139/80
[2021-02-01 23:57] VITALS: BP 146/89; BMI 28.6
--- NOTE | 2021-02-02 02:32 | NUR ---
PT RESTING WITH EYES CLOSED. RESPIRATIONS EVEN AND UNLABORED. HER BED ALARM IS ON, BED IS LOW AND CALL LIGHT IS WITHIN REACH.
[2021-02-02 11:25] VITALS: BP 179/53
[2021-02-02 13:49] VITALS: Ht 165.1 cm; Wt 78.0 kg
--- NOTE | 2021-02-02 16:39 | NUR ---
CARE TEAM MEETING; PATIENT IS NEW TO UNIT AND WILL BE RA AT NEXT MEETING. AT DISCHARGE PATIENTS WANTS TO RETURN TO [facility]. SHE HAS A CANE, WALKER AND HOME O2 AT HOME. WILL CONTINUE TO FOLLOW WITH PATIENT. SHE IS A CLIENT OF [address]
--- NOTE | 2021-02-02 20:00 | NUR ---
PT REMOVED DRESSING FROM HER RIGHT ARM SKIN TEAR. CLEANED AREA WITH WOUND CLEANSER AND PLACED A MEPILEX DRESSING OVER THE SKIN TEAR. ASKED HER TO KEEP THE DRESSING ON TO PREVENT BLEEDING AND INFECTION. SHE VERBALIZED UNDERSTANDING. HER BRIEF IS CLEAN AND DRY AND SHE DENIES NEEDING TO USE THE BATHROOM AT THIS TIME. SHE REPORTS PAIN TO THE LEFT KNEE. SHE RATES IT A 2/10 ONLY WHEN SHE MOVED. SHE STATES IT DOES NOT HURT IF SHE DOES NOT MOVE IT. OFFERED HER PAIN MEDICATION AND SHE DECLINED. REVIEWED THE ADMIT PAPER WORK WITH HER AND SHE SIGNED IT. SHE DENIES NEEDS AT THIS TIME. HER BED IS LOW, BED ALARM ON AND CALL LIGHT IS WITHIN REACH.
[2021-02-02 21:27] VITALS: BP 122/71
[2021-02-03 08:10] VITALS: BP 135/66
[2021-02-03 20:02] VITALS: BP 168/51
--- NOTE | 2021-02-03 21:00 | NUR ---
PATIENT HELPED INTO BATHROOM. MOD TO MAX ASST OF ONE PERSON FOR BED INTO WHEELCHAIR. INCONT OF URINE. HIMANSHU CARE GIVEN. LINENS ON BED CHANGED.
--- NOTE | 2021-02-04 00:38 | NUR ---
PATIENT RESTING WELL. EYES CLOSED. CALL LIGHT WITHIN REACH.
--- NOTE | 2021-02-04 02:53 | NUR ---
PATINT LYING ON BACK. EYES CLOSED. RESPIRATIONS EVEN AND UNLABORED. BED ALARM ON. CALL LIGHT WITHIN REACH.
[2021-02-04 07:08] LABS: ANION GAP 11.6 mmol/L (8-16); CALCIUM 8.5 mg/dL (8.5-10.1); CARBON DIOXIDE 27.2 mmol/L (21.0-32.0); CREATININE - SERUM 1.4 mg/dL (0.6-1.3); POTASSIUM - SERUM 3.8 mmol/L (3.5-5.1)
[2021-02-04 07:11] LABS: BASOPHILS 0.3 % (0-2); EOSINOPHILS 1.9 % (0-7); HEMATOCRIT 27.3 % (36.0-48.0); HEMOGLOBIN 8.6 g/dL (12-16); IMMATURE GRANULOCYTES 0.6 % (0-5); LYMPHOCYTE ABS# 0.84 10x3/uL (1.18-3.74); LYMPHOCYTES 7.7 % (15-50); MCHC 31.5 g/dL (31.0-37.0); MCV 88.9 fL (80.0-100.0); MEAN PLATELET VOLUME 11.3 fL (7.4-10.4); MONOCYTES 8.1 % (2-11); NEUTROPHIL ABS# 8.83 10x3/uL (1.56-6.13); NEUTROPHILS 81.4 % (40-80); PLATELET COUNT 212 10x3/uL (130-400); RBC 3.07 10x6/uL (4.00-5.40); RDW 16.1 % (11.5-14.5); WBC 10.9 10x3/uL (4.8-10.8)
--- NOTE | 2021-02-04 08:00 | NUR ---
PT RESTING IN BED WITH EYES OPEN CALL LIGHT IN REACH WILL MONITER
--- NOTE | 2021-02-04 17:30 | NUR ---
PT RESTING IN BED WITH EYES OPEN CALL LIGHT IN REACH NO PROBLEMS WILL MONITER
[2021-02-04 18:21] VITALS: BP 144/37
[2021-02-04 20:18] VITALS: BP 151/45
--- NOTE | 2021-02-04 20:40 | NUR ---
PATIENT RECEIVED SITTING UP IN BED. ASSESSMENT & VITAL SIGNS DONE. C/O PELVIC PAIN 12/29. PATIENT GIVEN PAIN MEDICATION. ALARM ON. CALL LIGHT WITHIN REACH. WILL CONTINUE TO MONITOR.
--- NOTE | 2021-02-04 23:52 | NUR ---
PATIENT USED CALL LIGHT FOR ASSIST. PATIENT MINIMAL ASST OUT OF BED. MINIMAL ASSIST IN & OUT OF WHELCHAIR. STANDBY ASSIST ONTO & OFF OF COMMMODE. RETURNED TO LOW BED. MODERATE ASSIST WITH LEGS INTO LOW BED. ALARM ON. CALL LIGHT WITHIN REACH. WILL CONTINUE TO MONITOR.
--- NOTE | 2021-02-04 23:55 | NUR ---
PATIENT AWAKE ON ROUNDS. DID NOT NEED TO USE BATHROOM AT THIS TIME. ALARM ON. CALL LIGTH WITHIN REACH. WILL CONTINUE TO MONITOR.
--- NOTE | 2021-02-05 01:00 | NUR ---
I have reviewed this patient and I concur with the Shift Assessment completed by the Licensed Practical Nurse today this shift.
--- NOTE | 2021-02-05 04:50 | NUR ---
ON ROUNDS PATIENT INCONTINENT OF URINE. PERIAREA & BUTTOCKS CLEANED. BRIEF & PADS REPLACED. BED LOW. ALARM ON. CALL LIGHT WITHIN REACH. WILL CONTINUE TO MONITOR.
--- NOTE | 2021-02-05 08:00 | NUR ---
SHE IS GETTING UP TO USE THE BATHROOM WITH THE WHEELCHAIR. PRN GIVEN FOR PAIN. SHE IS WEARING 2.5 L NC. SHE HAS SKIN TEARS ON HER ARMS. THE CALL LIGHT IS WITHIN REACH AND THE BED ALARM IS ON.
[2021-02-05 09:32] VITALS: BP 197/60
[2021-02-05 19:16] VITALS: BP 154/48
--- NOTE | 2021-02-05 19:44 | NUR ---
PATIENT RECEIVED SITTING UP IN BED. ASSESSMENT & VITAL SIGNS DONE. NO C/O PAIN OR DISTRESS. BED LOW. ALARM ON. CALL LIGHT WITHIN REACH. WILL CONTINUE TO MONITOR.
--- NOTE | 2021-02-06 03:43 | NUR ---
PATIENT EYES CLOSED. RESPIRATIONS 20 & EVEN. O2@2L AT THIS TIME. BEDSIDE TABLE & CALL LIGHT WITHIN REACH. ALARM ON. WILL CONTINUE TO MONITOR.
--- NOTE | 2021-02-06 05:18 | NUR ---
I have reviewed this patient and I concur with the Shift Assessment completed by the Licensed Practical Nurse today this shift.
[2021-02-06 07:30] VITALS: BP 175/54
--- NOTE | 2021-02-06 08:45 | NUR ---
SHE IS ALERT, TALKING. TOOK HER MEDICATIONS WITHOUT ANY PROBLEMS. SHE HURTS WHEN SHE MOVES, OTHER WAYS SHE IS OK. THE CALL LIGHT IS WITHIN REACH AND THE BED ALARM IS ON.
[2021-02-06 19:00] VITALS: BP 168/58
--- NOTE | 2021-02-06 19:30 | NUR ---
PATIENT RECEIVED LAYING IN BED. ASSESSMENT & VITAL SIGNS DONE. NO C/O PAIN OR DISTRESS. BED LOW. ALARM TRAVEL PT LIGHT WITHIN REACH. WILL CONTINUE TO [facility].
--- NOTE | 2021-02-07 00:27 | NUR ---
WHILE ON ROUNDS PATIENT WAS WET. PATIENT TURNED SELF. BRIEF TAKEN OFF. VOID ONLY. PATIENT BUTTOCKS & PERIAREA CLEANED. CALMOSEPTINE APPLIED. NEW BRIEF ON. BED LOW. ALARM ON. CALL LIGHT & BEDSIDE TABLE WITHIN REACH. WILL CONTINUE TO MONITOR.
--- NOTE | 2021-02-07 02:34 | NUR ---
PATIENT EYES CLOSED. RESPIRATIONS 18 & EVEN. BED LOW. ALARM ON. CALL LIGHT WITHIN REACH. WILL CONTINUE TO MONITOR.
--- NOTE | 2021-02-07 03:32 | NUR ---
I have reviewed this patient and I concur with the Shift Assessment completed by the Licensed Practical Nurse today this shift.
[2021-02-07 07:07] LABS: BASOPHILS 0.2 % (0-2); EOSINOPHILS 2.6 % (0-7); HEMATOCRIT 27.4 % (36.0-48.0); HEMOGLOBIN 8.4 g/dL (12-16); IMMATURE GRANULOCYTES 0.6 % (0-5); LYMPHOCYTE ABS# 0.74 10x3/uL (1.18-3.74); LYMPHOCYTES 6.8 % (15-50); MCH 27.9 pg (26.0-34.0); MCHC 30.7 g/dL (31.0-37.0); MEAN PLATELET VOLUME 10.4 fL (7.4-10.4); MONOCYTES 7.4 % (2-11); NEUTROPHIL ABS# 8.97 10x3/uL (1.56-6.13); NEUTROPHILS 82.4 % (40-80); PLATELET COUNT 239 10x3/uL (130-400); RBC 3.01 10x6/uL (4.00-5.40); RDW 16.3 % (11.5-14.5); WBC 10.9 10x3/uL (4.8-10.8)
[2021-02-07 07:17] LABS: ANION GAP 10.1 mmol/L (8-16); CALCIUM 8.4 mg/dL (8.5-10.1); CREATININE - SERUM 1.5 mg/dL (0.6-1.3); POTASSIUM - SERUM 4.1 mmol/L (3.5-5.1)
--- NOTE | 2021-02-07 07:42 | NUR ---
PT RESTING IN BED WITH EYES OPEN CALL LIGHT IN REACH WILL MONITER
[2021-02-07 08:09] VITALS: BP 185/54
--- NOTE | 2021-02-07 12:57 | NUR ---
NUTRITION FOLLOW UP: INTERVIEW: Met with patient this AM. She stated her appetite has been okay. She denied any issues with nausea, vomiting, diarrhea, or chewing/swallowing issues. She stated she becomes constipated at times. DIET: AHA Cardiac Diet PO INTAKE: 47% avg for last 9 meals WEIGHT: 02/02-172 lbs SKIN: No PU or Chronic Wounds BM: x 1 on 02/05 SIG MEDS: Nystatin, Probiotic, MVI, Vit D, Vit C, Protonix SIG LABS: Cl-109(H), BUN-27(H), Cr-1.5(H), Ca-8.4(L) RECOMMENDATIONS: -Continue AHA diet as tolerated -Encourage PO intake -Offer nutritional supplements if PO intake continues <50% avg for meals RD to follow up within 7 days
--- NOTE | 2021-02-07 18:00 | NUR ---
PT RESTING IN BED WITH EYES OPEN CALL LIGHT IN REACH WILL MONITER
--- NOTE | 2021-02-07 19:31 | NUR ---
PT IN BED WATCHING TV, NO NEEDS NOTED, FLUIDS/CL WITHIN REACH
[2021-02-07 21:44] VITALS: BP 146/40
--- NOTE | 2021-02-08 07:22 | NUR ---
PT RESTING IN BED WITH EYES OPEN CALL LIGHT IN REACH WILL MONITER
[2021-02-08 08:00] VITALS: BP 166/42
--- NOTE | 2021-02-08 18:27 | NUR ---
PT RESTING IN BED WITH EYES OPEN CALL LIGHT IN REACH WILL MONITER
[2021-02-08 19:00] VITALS: BP 153/42
--- NOTE | 2021-02-08 21:00 | NUR ---
PT REQUESTING BRIEF CHANGE. SHE WAS INCONTINENT OF URINE. BRIEF AND SHORTS CHANGED AND SHE WAS CLEANED UP. NEW PADS PLACED UNDER HER. TRAMADOL GIVEN REQUESTED FOR PAIN 10/10 TO LEFT HIP WHEN SHE MOVES. BILATERAL FEET ELEVATED ON A PILLOW. HER BED ALARM IS ON AND CALL LIGHT IS WITHIN REACH.
[2021-02-09 07:27] LABS: BASOPHILS 0.3 % (0-2); EOSINOPHILS 2.6 % (0-7); HEMATOCRIT 27.8 % (36.0-48.0); HEMOGLOBIN 8.5 g/dL (12-16); IMMATURE GRANULOCYTES 0.8 % (0-5); LYMPHOCYTE ABS# 0.94 10x3/uL (1.18-3.74); LYMPHOCYTES 8.3 % (15-50); MCH 27.9 pg (26.0-34.0); MCHC 30.6 g/dL (31.0-37.0); MCV 91.1 fL (80.0-100.0); MEAN PLATELET VOLUME 10.5 fL (7.4-10.4); MONOCYTES 6.3 % (2-11); NEUTROPHIL ABS# 9.31 10x3/uL (1.56-6.13); NEUTROPHILS 81.7 % (40-80); PLATELET COUNT 240 10x3/uL (130-400); RBC 3.05 10x6/uL (4.00-5.40); RDW 16.7 % (11.5-14.5); WBC 11.4 10x3/uL (4.8-10.8)
[2021-02-09 07:41] LABS: ANION GAP 14.3 mmol/L (8-16); CALCIUM 8.6 mg/dL (8.5-10.1); CARBON DIOXIDE 24.8 mmol/L (21.0-32.0); CREATININE - SERUM 1.3 mg/dL (0.6-1.3); POTASSIUM - SERUM 4.1 mmol/L (3.5-5.1)
[2021-02-09 07:54] VITALS: BP 152/59
[2021-02-09 08:06] VITALS: BP 163/49
--- NOTE | 2021-02-09 08:34 | NUR ---
PATIENT ALERT/ORIENT. SITTING UP IN WHEELCHAIR BY BEDSIDE. CHAIR ALARM ON. CALL LIGHT WITHIN REACH. VOICES NO NEEDS AT THIS TIME. WILL CONTINUE WITH PLAN OF CARE
--- NOTE | 2021-02-09 11:09 | NUR ---
PATIENT IN REHAB ROOM. C/O OF RIGHT HIP PAIN. PRN PAIN MEDICATION GIVEN.
--- NOTE | 2021-02-09 12:00 | NUR ---
I have reviewed this patient and I concur with the Shift Assessment completed by the Licensed Practical Nurse today this shift.
--- NOTE | 2021-02-09 14:34 | NUR ---
PATIENT HELPED INTO BATHROOM. ASST OF ONE FROM WHEELCHAIR ONTO TOILET
--- NOTE | 2021-02-09 16:29 | NUR ---
CARE TEAM MEETING: PATIENT IS DOING WELL IN THERAPY. HER TENATIVE DC DATE IS 02/16/21. WILL CONTINUE TO FOLLOW WITH PATIENT AND WILL ASSIST WITH HER NEEDS.
[2021-02-09 21:29] VITALS: BP 143/37
--- NOTE | 2021-02-10 03:40 | NUR ---
PT RESTING WITH EYES CLOSED. RESPIRATIONS SHALLOW BUT EVEN AND UNLABORED. SHE IS ON 2L NC. HER BED IS LOW, BED ALARM ON AND CALL LIGHT WTIHIN REACH.
[2021-02-10 07:49] VITALS: BP 155/99
--- NOTE | 2021-02-10 09:30 | NUR ---
SHE IS LYING IN BED. SHE IS INCONTINENT OF URINE. SHE DOES NOT WANT TO GET UP TO USE THE BATHROOM. THE CALL LIGHT IS WITHIN REACH AND THE BED ALARM IS ON.
--- NOTE | 2021-02-10 19:00 | RHP ---
PATIENT: MIRNA CHAVEZ MEDICAL RECORD: [id number] ACCOUNT: [id number] LOCATION:[facility] : 35 ADMISSION DATE: 02/01/21 REHABILITATION HISTORY AND PHYSICAL EXAMINATION POST ADMISSION PHYSICIAN EXAMINATION POST ADMISSION PHYSICAL EXAMINATION AND HISTORY AND PHYSICAL ADMITTING DIAGNOSIS: Pelvic fracture. HISTORY OF PRESENT ILLNESS: The patient apparently fell at home on 07/25/2021, became entangled in some O2 tubing about 6 hours after discharged from the skilled rehab. Prior to skilled rehabilitation, the patient was independent at home. She was on constant O2. She has a walker and cane at home. In addition to her fractures, she did have pulmonary fibrosis, COPD, musculoskeletal pain. During her stay, a contusion to her left hip. The patient will be nonweightbearing to her left hip and pelvis for 6 weeks. She is alert and oriented x4. She has some intermittent confusion and some short-term memory difficulty. She is receiving tramadol for pain. Physical therapy reports that she requires max assist from chair to bed and then max assist from chair back to bed. She is tolerating being out of bed for 3 hours at a time. She is max assist for bed mobility. The patient is currently need to be monitored for accurate pain control and medication adjustments. Once again, she is nonweightbearing on the left extremity. She is going to need intensive therapy, physical, and occupational in order to learn safety, transfer and gait with her limitations as well as retraining for ADLs. She will be requiring acute monitoring of her respiratory status secondary to her pulmonary fibrosis and a history of pretty severe COPD. The patient will also have to have medications adjusted intermittently. All these above-mentioned barriers are keeping her from being discharged home safely at this time. COMORBIDITIES: Include arthritis, coronary artery disease, decreased mobility, decreased physical functioning, diabetes mellitus, essential hypertension, falls and lupus. PAST MEDICAL HISTORY: Significant for pulmonary fibrosis, COPD, musculoskeletal pain, diabetes, hypertension, lupus, chronic back pain, mitral valve insufficiency, got bilateral coronary artery disease. PAST SURGICAL HISTORY: Includes pacemaker placement. She has had a right total knee, left total knee, hysterectomy. She has had breast biopsy, bladder surgery, appendectomy, cataract surgery, gallbladder and colon resection, back surgery. ALLERGIES: MORPHINE AND CODEINE. CURRENT MEDICATIONS: Include Floranex one cap daily. She is on Shanique 60 mg daily, Zoloft 50 mg daily, multivitamin daily, vitamin D 10,000 units daily, budesonide 9 mg daily, ascorbic acid 500 mg daily, Multaq 400 mg b.i.d. with meals, Protonix 40 mg daily, losartan 25 mg b.i.d., aspirin chewable 81 mg b.i.d., Voltaren gel to apply topically, Tramadol 50 mg q.6 hours, and Imodium 2 mg t.i.d. p.r.n. HABITS: No current alcohol or tobacco use. Does have a history of this in the past. HISTORY AND PHYSICAL [id number] KATHYMIRNA Rick FAMILY HISTORY: Noncontributory. SOCIAL HISTORY: The patient is going to need to be able to learn adaptive techniques in order to return home. REVIEW OF SYSTEMS: GENERAL: Does complain of weakness and fatigue. HEENT: Denies cold, cough and congestion. CARDIOVASCULAR: Denies any chest pain. LUNGS: Does complain of shortness of breath, but states this is nothing new. PHYSICAL EXAMINATION: VITAL SIGNS: Stable. She is afebrile. GENERAL: An elderly female, in no acute distress upon exam. HEENT: Normocephalic and atraumatic. Mucosa moist. NECK: Supple. No lymphadenopathy. LUNGS: Decreased breath sounds in both bases. CARDIOVASCULAR: Regular rate and rhythm. She does have a holosystolic murmur. ABDOMEN: Soft, benign, nondistended. Positive bowel sounds times 4. EXTREMITIES: No clubbing, cyanosis or edema. She does have pain to palpation along her left hip region. NEUROLOGIC: She has got diffuse weakness. LABORATORY DATA: White count 11,000, H&H 8.6 and 28.2 and platelet count is 187. Her chemistry shows sodium 140, potassium 4.7, BUN and creatinine of 32 and 1.8, and blood sugar is noted to be 174. ASSESSMENT: This is an 85-year-old female patient admitted to rehab with a working diagnosis of pelvic fracture. The patient has potential to make improvement. We instituted the following multidisciplinary therapies including, not limited to physical, occupational, respiratory, speech, nutritional services, prosthetics and orthotics. Given her complex medical condition and risks for more complications, rehabilitation services cannot be provided at a low level of care such as senior care facility. PLAN: 1. Admit to [facility] for inpatient therapy to include the following disciplines: A. Physical therapy to improve gait, all transfer skills and bed mobility to a modified independent level. B. Occupational therapy to improve activities of daily living. C. Case management to help with discharge planning and placement options. D. Nutrition to assist with nutritional needs. E. Rehabilitation nursing to assist in monitoring the patient's underlying medical conditions and to assist with any type of bowel or bladder management. 2. The patient's current medication and medical care will be continued. 3. Placed on standard fall precautions. 4. The patient's estimated length of stay is approximately 7-10 days. 5. We will discuss this patient during care team staff meeting this week. Once again, she is going to have to adapt with this nonweightbearing status to her left lower extremity. We will work with PT and OT on this. I am going to discuss her case today at our noon meeting. TRANSINT:[id number] Voice Confirmation ID: [id number] DOCUMENT ID: [id number] HISTORY AND PHYSICAL [id number] MIRNA CHAVEZ notes whether there has been none or any medical/functional change since admission: - No change since preadmission screen. PRIMO attests patient continues to be appropriate for IRF: - Continues to be appropriate. NADIYA RICHARDS MD at 1900 CC: [id number] DICTATION DATE: 02/02/21 0846 CASCARA BARK CUTTER: 02/02/21 0940 ADM IN [facility] [address] [place] [address]
[2021-02-10 21:49] VITALS: BP 153/43
[2021-02-11 08:20] VITALS: BP 199/51
--- NOTE | 2021-02-11 08:30 | NUR ---
SHE IS SETTING UP IN THE BED FOR BREAKFAST. SHE TOOK HER MEDICATIONS WITHOUT ANY PROBLEMS. THE CALL LIGHT IS WITHIN REACH AND THE BED ALARM IS ON.
--- NOTE | 2021-02-11 12:46 | NUR ---
NUTRITION FOLLOW UP: COMMENTS: Patient eating pizza from [employer] with her roomate during visit during lunch. No new complaints. She has been eating well. DIET: AHA Cardiac Diet PO INTAKE: 61% avg for last 9 meals WEIGHT: 02/02-172 lbs BM: x 1 on 02/12 SIG MEDS: Vit D, Nystain, Probiotic, MVI, Vit C, Protonix SIG LABS: Cl-109(H), BUN-27(H), GFR-41(L) RECOMMENDATIONS: Continue current diet as tolerated Offer nutritional supplements if PO intake becomes <50% avg for meals RD to follow up within 7 days
[2021-02-11 13:40] LABS: BASOPHILS 0.5 % (0-2); EOSINOPHILS 3.4 % (0-7); HEMATOCRIT 29.5 % (36.0-48.0); HEMOGLOBIN 9.4 g/dL (12-16); IMMATURE GRANULOCYTES 1.2 % (0-5); LYMPHOCYTE ABS# 0.79 10x3/uL (1.18-3.74); LYMPHOCYTES 6.1 % (15-50); MCH 28.4 pg (26.0-34.0); MCHC 31.9 g/dL (31.0-37.0); MCV 89.1 fL (80.0-100.0); MEAN PLATELET VOLUME 10.7 fL (7.4-10.4); MONOCYTES 8.1 % (2-11); NEUTROPHIL ABS# 10.38 10x3/uL (1.56-6.13); NEUTROPHILS 80.7 % (40-80); PLATELET COUNT 239 10x3/uL (130-400); RBC 3.31 10x6/uL (4.00-5.40); RDW 16.3 % (11.5-14.5); WBC 12.9 10x3/uL (4.8-10.8)
[2021-02-11 15:23] LABS: ANION GAP 13.7 mmol/L (8-16); CALCIUM 8.3 mg/dL (8.5-10.1); CARBON DIOXIDE 26.2 mmol/L (21.0-32.0); CREATININE - SERUM 1.3 mg/dL (0.6-1.3); POTASSIUM - SERUM 3.9 mmol/L (3.5-5.1)
--- NOTE | 2021-02-11 20:00 | NUR ---
PATIENT RECEIVED SITTING UP IN LOW BED CROCHETING. ASSESSMENT & VITAL SIGNS DONE. NO C/O PAIN OR DISTRESS AT THIS TIME. ALARM ON. CALL LIGHT & BEDSIDE TABLE WITHIN REACH. WILL CONTINUE TO MONITOR.
[2021-02-11 20:24] VITALS: BP 147/46
--- NOTE | 2021-02-12 00:15 | NUR ---
I have reviewed this patient and I concur with the Shift Assessment completed by the Licensed Practical Nurse today this shift.
--- NOTE | 2021-02-12 01:34 | NUR ---
PATIENT BRIEF CHECKED ON ROUNDS. PATIENT WET & HAS SOFT BM. PATIENT PERIAREA & BUTTOCKS CLEANED. NEW PADS UNDER. BED LOW. CALL LIGHT & BEDSIDE TABLE WITHIN REACH. WILL CONTINUE TO MONITOR.
--- NOTE | 2021-02-12 03:06 | NUR ---
PATIENT USED CALL LIGHT FOR ASSIST. PATIENT MOD ASSIST INTO & OUT OF WHEELCHAIR. ON & OFF COMMODE. VOID & BM. RETURNED TO LOW BED. ALARM ON. CALL LIGHT & BEDSIDE TABLE WITHIN REACH. WILL CONTINUE TO MONITOR.
[2021-02-12 06:19] VITALS: BP 172/62
--- NOTE | 2021-02-12 07:50 | NUR ---
PT RESTING IN BED WITH EYES OPEN CALL LIGHT IN REACH NO PROBLEMS WILL MONITER
[2021-02-12 08:55] VITALS: BP 170/42
--- NOTE | 2021-02-12 17:48 | NUR ---
PT RESTING IN BED WITH EYES OPEN CALL LIGHT IN REACH NO PROBLEMS WILL MONITER
[2021-02-12 19:00] VITALS: BP 183/63
--- NOTE | 2021-02-12 20:00 | NUR ---
PATIENT RECEIVED SITTING UP IN WHEELCHAIR. ASSESSMENT & VITAL SIGNS DONE. PATIENT TOILETED. VOID & BM. RETURNED TO LOW BED. ALARM ON. CALL LIGHT & BEDSIDE TABLE WITHIN REACH. WILL CONTINUE TO MONITOR.
--- NOTE | 2021-02-13 03:26 | NUR ---
I have reviewed this patient and I concur with the Shift Assessment completed by the Licensed Practical Nurse today this shift.
--- NOTE | 2021-02-13 04:53 | NUR ---
PATIENT BRIEF & PADS CHANGED. PATIENT CLEANED. NEW PADS APPLIED. BED LOW. ALARM ON. CALL LIGHT WITHIN REACH. WILL CONTINUE TO MONITOR.
--- NOTE | 2021-02-13 08:15 | NUR ---
PT UP IN WHEELCHAIR EATING BREAKFAST TOLERATING WELL CALL LIGHT IN REACH WILL MONITER
[2021-02-13 09:02] VITALS: BP 182/62
--- NOTE | 2021-02-13 17:49 | NUR ---
PT UP IN WHEELCHAIR IN ROOOM EATING SUPPER TOLERATING WELL CALL LIGHT IN REACH WILL MONITER
[2021-02-13 19:00] VITALS: BP 149/55
--- NOTE | 2021-02-13 19:46 | NUR ---
PATIENT RECEIVED SITTING UP IN WHEELCHAIR AT BEDSIDE. ASSESSMENT & VITAL SIGNS WITHIN REACH. CALL LIGHT & BEDSIDE TABLE WITHIN REACH. WILL CONTINUE TO MONITOR.
--- NOTE | 2021-02-14 03:50 | NUR ---
PATIENT USED CALL LIGHT FOR ASSIST. PATIENT PAD SOAKED WITH URINE. PERIAREA & BUTTOCKS CLEANED. NEW PADS UNDER PATIENT. BED LOW. CALL LIGHT WITHIN REACH. WILL CONTINUE TO MONITOR.
[2021-02-14 05:56] VITALS: BP 161/43
[2021-02-14 08:24] VITALS: BP 162/45
[2021-02-14 19:33] VITALS: BP 161/44
--- NOTE | 2021-02-15 01:50 | NUR ---
PT RESTING WITH EYES CLOSED. RESPIRATIONS EVEN AND UNLABORED. SHE IS WEARING 2L O2 VIA NASAL CANULA. HER BED IS LOW, BED ALARM ON AND CALL LIGHT IS WITHIN REACH.
[2021-02-15 06:19] VITALS: BP 168/52
--- NOTE | 2021-02-15 09:00 | NUR ---
SHE IS WORKING WITH PT. SHE HAS BIALATERAL LOWER LEG EDEMA. SHE IS INCONTINENT OF URINE, SOMETIMES STOOL. THE CALL LIGHT IS WITHIN REACH AND THE BED ALARM IS ON.
[2021-02-15 20:02] VITALS: BP 146/33
--- NOTE | 2021-02-15 20:23 | NUR ---
AWAKE AND ALERT. RESTING IN BED WITH RESPIRATIONS UNLABORED ON O2/2L PER NASAL CANNULA. EDEMA NOTED IN BILATERAL LEGS. NO ACUTE DISTRESS NOTED. CALL LIGHT IN REACH.
--- NOTE | 2021-02-16 02:16 | NUR ---
RESTING IN BED WITH NO DISTRESS NOTED. RESPIRATIONS UNLABORED. CALL LIGHT IN REACH.
--- NOTE | 2021-02-16 05:55 | NUR ---
QUIET HOURS. NO ACUTE CHANGES IN CONDITION THIS SHIFT. RESTING IN BED WITH NO DISTRESS NOTED.
[2021-02-16 07:08] LABS: PRO BNP 6358 pg/mL (0-450); TROPONIN-I < 0.017 ng/mL (0.000-0.060)
[2021-02-16 08:05] VITALS: BP 152/46
--- NOTE | 2021-02-16 13:55 | NUR ---
Nutrition Re-Assessment: Diet: Cardiac PO intake: ~69% average x last 9 meals Last BM: 02/15/21 Wt: 172# (02/02/21) Meds noted: micro-K, lasix, probiotics, MVI, protonix Labs reviewed Estimated nutrition needs: [id number] rodrigo (20-25 Act), 62-78gms protein (0.8-1), 1950-2350mL fluid (or per MD) Nutrition goals: -PO intake >65% average -Dry weight stable DHS Recommendations/Interventions: -Recommend continue cardiac diet. Will continue to honor food preferences within diet restrictions. -Offer oral nutrition supplements if PO intake trends <65% average. -RD will follow-up 02/21/21.
--- NOTE | 2021-02-16 16:02 | NUR ---
CARE TEAM MEETING: PATIENT DAUGHTER AND GRANDDAUGHTER ATTENDED THE MEETING.THIER QUESTIONS AND CONCERNS WERE ADDRESSED. A REFRRAL HAS BEEN FAXED TO [facility] AND WILL POSSIBLE DC THERE ON 02/18/21. WILL CONTINUE TO FOLLOW WITH PATIENT.
--- NOTE | 2021-02-16 19:15 | NUR ---
PT IN BED, NO IMMEDIATE NEEDS NOTED, FLUIDS/CL WITHIN REACH
[2021-02-16 20:40] VITALS: BP 155/37
[2021-02-17 07:56] VITALS: BP 179/57
--- NOTE | 2021-02-17 07:59 | EC ---
PATIENT:MIRNA CHAVEZ DATE OF SERVICE: 02/01/21 SEX: F MEDICAL RECORD: [id number] DATE OF : 35 LOCATION:[facility] AGE OF PATIENT: 85 ADMISSION DATE: 02/01/21 REFERRING PHYSICIAN: INTERPRETING PHYSICIAN: ERMIAS CARDOZA MD ECHOCARDIOGRAM REPORT ECHO CHARGES 4 ECHO COMPLETE Date: 02/16/21 CLINICAL DIAGNOSIS: AFIB ECHOCARDIOGRAPHIC MEASUREMENTS (adult normal given) AC root (d.<3.7cm) 2.6 cm LV Septum d (<1.2 cm> 1.0 cm Valve Excursion 1.2 cm LV Septum (systole) 1.5 cm Left Atria (s.<4.0cm> 4.7 cm LVPW d(<1.2cm) 1.1 cm RV (d.<2.3cm) 3.9 cm LVPW (sytole) 1.3 cm LV diastole(<5.6CM) 4.7 cm MV E-F(>70mm/sec) cm LV systole 3.3 cm LVOT Diameter 1.5 cm MV exc.(>10mm) 1.5 cm Est.ejection fraction (50-75%) % DOPPLER: LVIT cm/sec A 35 cm/sec E 136 cm/sec LA cm/sec RVSP 68 mmHg LVOT 101 cm/sec AOP1/2T m/s Asc. Ao 141 cm/sec RVOT 50 cm/sec RA cm/sec PA 77 cm/sec AV Gradient Peak 8.0 mmHg AV Mean 4.2 mmHg AV Area 1.4 cm MV Gradient Peak 7.4 mmHg MV Mean 2.3 mmHg MV Area cm COMMENTS: Neck Band Operator: Nj PINEDO Forensics Analyst: 3 Dr. Alanis TAPE# Pericardial Effusion N DATE OF SERVICE: Adequate 2D, color-flow imaging, spectral Doppler, and M-Mode. FINDINGS: No LVH. LV internal dimension is normal. Wall motion is normal. EF is greater than or equal to 55%. Aortic valve is tricuspid. No evidence of stenosis by Doppler interrogation. Left atrium is normal at 4.7 cm. Mitral valve shows no prolapse. Mild MR. Right-sided chambers appear grossly normal. Moderate TR. ECHOCARDIOGRAM REPORT [id number] MIRNA CHAVEZ TRANSINT:[id number] Voice Confirmation ID: [id number] DOCUMENT ID: [id number] ERMIAS CARDOZA MD at 0759 CC: [id number] DICTATION DATE: 02/16/211656 HEALTHCARE RECRUITER: 02/16/212119 ADM IN [place] [id number] [place] [id number]
[2021-02-17 19:30] VITALS: BP 152/48
--- NOTE | 2021-02-18 02:34 | NUR ---
PT RESTING WITH EYES CLOSED. RESPIRATIONS ARE EVEN AND UNLABORED. SHE IS WEARING 2L O2 NASAL CANNULA. HER BED IS LOW, BED ALARM ON AND CALL LIGHT IS WITHIN REACH.
[2021-02-18 05:29] VITALS: BP 172/58
[2021-02-18 08:10] LABS: BASOPHILS 0.1 % (0-2); EOSINOPHILS 1.6 % (0-7); HEMATOCRIT 28.2 % (36.0-48.0); HEMOGLOBIN 8.9 g/dL (12-16); IMMATURE GRANULOCYTES 0.6 % (0-5); LYMPHOCYTE ABS# 0.74 10x3/uL (1.18-3.74); LYMPHOCYTES 5.5 % (15-50); MCH 27.7 pg (26.0-34.0); MCHC 31.6 g/dL (31.0-37.0); MCV 87.9 fL (80.0-100.0); MEAN PLATELET VOLUME 10.9 fL (7.4-10.4); NEUTROPHILS 85.2 % (40-80); PLATELET COUNT 289 10x3/uL (130-400); RBC 3.21 10x6/uL (4.00-5.40); RDW 16.4 % (11.5-14.5); WBC 13.5 10x3/uL (4.8-10.8)
[2021-02-18 08:33] LABS: ANION GAP 12.9 mmol/L (8-16); CALCIUM 8.5 mg/dL (8.5-10.1); CARBON DIOXIDE 30.5 mmol/L (21.0-32.0); CREATININE - SERUM 1.1 mg/dL (0.6-1.3); POTASSIUM - SERUM 3.4 mmol/L (3.5-5.1)
--- NOTE | 2021-02-18 08:47 | NUR ---
THE ARELLANO IS LEAKING. WILL CHANGE IT OUT. PRN GIVEN FOR PAIN. MAY DISCHARGE TODAY. CHANGED HER LINEN, THE CALL LIGHT IS WITHIN REACH AND THE BED ALARM IS ON.
[2021-02-18] MEDS ORDERED: MACROBID100 MG PO (09:05)
--- NOTE | 2021-02-18 10:07 | NUR ---
PATIENT DISCHARGING TO [facility] VIA FACILITY VAN . ERNESTINA SIGNED, IMM SERVED AND EXPLAINED, ONE GIVEN TO PATIENT AND ONE FILED IN CHART. APPOINTMENTS WITH DR. DELCID AND DR. JIMENEZ WILL BE MADE AT TIME OF DISCHARGE FROM FACILITY. FACILITY WILL MAKE A [address] SCAN APPOINTMENT PER DR. JIMENEZ ORDERS. DISCHARGE INSTRUCTIONS HAVE BEEN FAXED TO PCP, SNF AND REVIEWED WITH PATIENT. DAUGHTER HAS BEEN NOTIFIED OF DISCHARGE. NO COMPARE DATA REVIEWED DAUGHTER CHOSE [facility].
--- NOTE | 2021-02-18 10:28 | NUR ---
REPORT GIVEN TO JOSEPHINE NEW AT [facility]. THEY WILL SEND A VAN TO PICK HER UP.
--- NOTE | 2021-02-18 11:09 | NUR ---
[facility]. HER DAUGHTER WAS WITH HER. QUESTIONS ANSWERED AND PAPERWORK GONE OVER WITH THE PATIENT AND HER DAUGHTER.
== END 2021-02-18 11:09 | DRG 561 ==
LOC: D.REHAB 18:45
PROVIDERS: ADMIT Emergency Medicine; ATTEND Emergency Medicine
DX: S32.9XXD Fracture of unspecified parts of lumbosacral spine and pelvis, subsequent encounter for fracture with routine healing (principal); W19.XXXD Unspecified fall, subsequent encounter; M19.90 Unspecified osteoarthritis, unspecified site; E11.9 Type 2 diabetes mellitus without complications; I10 Essential (primary) hypertension; M32.9 Systemic lupus erythematosus, unspecified